=== PATIENT | female | born 1975 | race Caucasian/White ===

== ENCOUNTER 2018-06-10 11:57 | Outpatient (REF) | payer BC, SELFPAY ==
[2018-06-10 15:46] LABS: COMMENT (LAB VIEW ONLY) 234.18 mg/dL
[2018-06-10 19:25] LABS: TSH 2.21 uIU/mL (0.358-3.74)
== END 2018-06-10 11:58 ==
LOC: NCHCN 11:57
PROVIDERS: PCP Nurse Practitioner Family; Visit Provider Nurse Practitioner Family
DX: E11.9 Type 2 diabetes mellitus without complications (principal); E03.9 Hypothyroidism, unspecified
CPT/HCPCS: 82043; 82570; 84443

== ENCOUNTER 2018-10-22 12:39 | Emergency (ER) | payer OTHER, SELFPAY ==
[2018-10-22 12:46] VITALS: BP 159/96; PULSE 93; RESP 16; TEMP 36.3; O2SAT 18
--- NOTE | 2018-10-22 12:59 | DI.RAD_ITS ---
SYMPTOMS/DIAGNOSIS: FALL, MID SHAFT PAIN RIGHT HUMERUS: No fracture is identified. The elbow and shoulder are unremarkable as visualized. IMPRESSION: Negative right humerus. RIGHT SHOULDER: No fracture or dislocation is seen. The AC joint is not widened. IMPRESSION: Negative right shoulder.
--- NOTE | 2018-10-22 13:02 | ED.GENADUL_ITS ---
Discharge Plan Disposition Patient Disposition: HOME Condition: Stable Discharge Details Chief Complaint: Orthopedic Clinical Impression: Contusion of multiple sites, Fall due to ice or snow Reason For Visit: slright upper arm shoulder pain Primary Care Provider: Arpita Rosas ED Provider: Orlin Payne Home Meds and New Rx's Prescriptions: Continued Lantus U-100 Insulin 100 unit/mL Solution 60 unit subcut BID RF: 0 Novolog U-100 Insulin aspart 100 unit/mL Solution 30 unit subcut TID RF: 0 metformin 1,000 mg Tablet 1,000 mg PO BID RF: 0 levothyroxine 175 mcg Tablet 175 mcg PO DAILY RF: 0 ibuprofen 200 mg Tablet 200 mg PO PRN PRNRF: 0 gabapentin 300 mg Capsule 300 mg PO TID RF: 0 meloxicam 15 mg Tablet 15 mg PO DAILY RF: 0 oxycodone 10 mg Tablet 10 mg PO BID RF: 0 omeprazole 40 mg Capsule,Delayed Release(Dr/Ec) 40 mg PO DAILY RF: 0 bupropion HCl 75 mg Tablet 75 mg PO DAILY RF: 0 omega 6-eae-bho-fish oil [Fish Oil] 1,000 mg (120 mg-180 mg) Capsule 1,000 mg PO BID RF: 0 vit D3-folic [id number]-B12 2,000-800-0.32 unit-mcg-mg Tablet RF: 0 Discharge Instructions Instructions: Contusion in Adults (ED), Fall Prevention (ED) Additional Instructions: You may continue to take your pain medication as prescribed along with ibuprofen and applying ice to areas of discomfort. You may advance activity as tolerated by discomfort and follow-up with your primary care provider at their office as needed for reassessment if not improving over the next couple weeks. Feel free to return to the emergency department for any significant worsening of her symptoms or further concerns. Stand Alone Forms: Work Release Referrals: Arpita Rosas [Primary Care Provider] - (As needed for reassessment) Medical Decision Making Patient presenting to the emergency department for chief complaint of fall with right shoulder, humerus pain along with some mild knee pain. She states that her knee was very minimal discomfort but mostly concerned about her upper arm. Patient was actually can wait to be evaluated later but her boss asked her to come in due to this being a fall while at work. Patient denies any loss of consciousness, head injury, neck or significant back pain. Patient has physical exam findings of midshaft humerus tenderness, and proximal humerus/shoulder tenderness with full range of motion but pain with extension of her arm. Exam is otherwise unremarkable. Plan to perform radiological imaging of the upper extremity for rule out of acute fracture. Knee was examined and there is no tenderness and patient is full weightbearing so I do not feel that patient needs any imaging of the knee. Patient took ibuprofen just prior to arrival denies need for pain med Review of radiological imaging shows no acute findings no obvious fracture or dislocation. Patient diagnosed with multiple contusions and informed to apply ice to the areas of discomfort at to use her normally prescribed pain medication along with [id number] pain medication as needed for discomfort. Patient to follow-up with primary care provider as needed for reassessment or return for any new or worsening symptoms. Given diagnosis of contusion I feel the patient can return to work tomorrow. HPI General Mode of arrival: ambulatory . Date/Time Provider Initiated Documentation: 10/22/18 12:47 . Limitations to Documentation: no limitations . Information obtained by: patient and RN notes reviewed . History of Present Illness 43 year old F presents to the emergency department with the chief complaint of fall- shoulder and knee pain, described as mild, Quality is described as aching, and is localized to the right and upper extremity. Patient started experiencing this minute(s) (45) and it has been constant. No relieving factors improve symptom(s), Movement worsens symptoms . Patient notes no other symptoms.. Patient did receive the following treatments prior to arrival, NSAID Related Data Home Medications Medication Instructions Recorded Confirmed Lantus U-100 Insulin 60 unit SUBCUT BID 10/22/18 10/22/18 Novolog U-100 Insulin aspart 30 unit SUBCUT TID 10/22/18 10/22/18 bupropion HCl 75 mg PO DAILY 10/22/18 10/22/18 gabapentin 300 mg PO TID 10/22/18 10/22/18 ibuprofen 200 mg PO PRN PRN 10/22/18 10/22/18 levothyroxine 175 mcg PO DAILY 10/22/18 10/22/18 meloxicam 15 mg PO DAILY 10/22/18 10/22/18 metformin 1,000 mg PO BID 10/22/18 10/22/18 omega 1-lkt-une-fish oil [Fish Oil] 1,000 mg PO BID 10/22/18 10/22/18 omeprazole 40 mg PO DAILY 10/22/18 10/22/18 oxycodone 10 mg PO BID 10/22/18 10/22/18 vit D3-folic veek-T2-H1-B12 10/22/18 Allergies Allergy/AdvReac Type Severity Reaction Status Date / Time acetaminophen [From Vicodin] Allergy Unverified 10/22/18 12:50 hydrocodone [From Vicodin] Allergy Unverified 10/22/18 12:50 lisinopril Allergy Unverified 10/22/18 12:49 sulfamethoxazole Allergy Hives Unverified 10/22/18 12:50 [From Bactrim] trimethoprim [From Bactrim] Allergy Hives Unverified 10/22/18 12:50 General Stated Complaint: Orthopedic SILVIO: 4 Review of Systems Constitutional Denies frequent falls and Denies lethargy Eyes Denies change in vision ENT Denies neck pain Cardiovascular Denies syncope Musculoskeletal Reports as per HPI, Denies back pain and Denies neck pain Neurologic Denies syncope and Denies frequent falls [facility] Medical History Back pain (Chronic) Hypothyroid (Chronic) Diabetes (Chronic) Hypertension (Chronic) Exam Const General: cooperative, healthy appearing and comfortable Orientation: alert, awake and oriented x3 Limitations: mental status not altered HENMT Head: normal to inspection, normocephalic and atraumatic Ears: external ears normal Resp Effort & Inspection: normal respiratory effort and able to speak in complete sentences Cardio Rate: regular rate Rhythm: regular rhythm Back/Spine/Pelvis Cervical Spine: normal cervical lordosis, cervical ROM normal, No loss of normal cervical lordosis, No cervical muscular tenderness and No step off deformity Thoracic/Lumbar Spine: No thoracic spinal tenderness Extrem Right upper extremity: full ROM and shoulder/upper arm Details: tenderness Location: of the proximal humerus, of the mid-shaft humerus and over the coracoid process; not of the clavicle, not of the A-C joint and not of the scapula, axillary nerve sensory function normal and abnormal ROM Details: pain with active ROM Details: in extension Course Vital Signs Temperature 36.3 C L 10/22/18 12:46 Pulse 93 H 10/22/18 12:46 Respiratory Rate 16 10/22/18 12:46 Blood Pressure 159/96 H 10/22/18 12:46 Pulse Oximetry 18 L 10/22/18 12:46 Temperature 36.3 C L 10/22/18 12:46 Temperature Source Temporal Artery Scan 10/22/18 12:46 Pulse 93 H 10/22/18 12:46 Respiratory Rate 16 10/22/18 12:46 Blood Pressure 159/96 H 10/22/18 12:46 Pulse Oximetry 18 L 10/22/18 12:46 Oxygen Delivery Method Room Air 10/22/18 12:46 Oxygen Flow Rate 0 10/22/18 12:46
--- NOTE | 2018-10-22 13:30 | NUR.NOTE ---
patient ambulated steadily to radiology and returned to room, ice pack re-applied, awaiting results Nursing Note:
[2018-10-22 13:33] VITALS: BP 142/79; PULSE 80; RESP 16; O2SAT 96
== END 2018-10-22 14:15 | disposition home or self-care (01) ==
PROVIDERS: Emergency Provider Nurse Practitioner Family; PCP Nurse Practitioner Family
DX: S40.011A Contusion of right shoulder, initial encounter (principal); S40.021A Contusion of right upper arm, initial encounter; M25.651 Stiffness of right hip, not elsewhere classified; W00.0XXA Fall on same level due to ice and snow, initial encounter; Y99.0 Civilian activity done for income or pay; E11.9 Type 2 diabetes mellitus without complications; I10 Essential (primary) hypertension
CPT/HCPCS: 99284; 73030; 73060; 99282